=== PATIENT | female | born 1990 | race African-American/Black ===

== ENCOUNTER 2021-01-12 04:40 | Emergency (ER) | payer BC ==
[~2021-01-12] VITALS: Ht 167.6 cm; Wt 81.0 kg
[2021-01-12] MEDS ORDERED: LIDOCAINE HCL/EPINEPHRINE 1%-EPI 1:100,000 50 ML VIAL INFIL ONE (05:15)
[2021-01-12] MEDS ORDERED: SODIUM CHLORIDE 0.9% 1,000 ML IV ONE (05:30)
[2021-01-12] MEDS ORDERED: TETANUS, DIPHTHERIA, PERTUSSIS VAC/PF 0.5ML (>10YR OLD) IM ONE (05:30)
[2021-01-12 05:45] LABS: BASOPHILS % 0.9 % (0.0-2.0); EOSINOPHILS % 0.5 % (0.0-5.0); HEMATOCRIT. 39.9 % (36.0-48.0); HEMOGLOBIN. 13.1 g/dL (12.0-16.0); LYMPHOCYTES % 18.2 % (20.0-50.0); MEAN CORPUSCULAR HEMOGLOBIN 27.6 pg (28.0-32.0); MEAN CORPUSCULAR VOLUME 84.2 fL (81.0-99.0); MEAN PLATELET VOLUME 8.2 fl (7.4-10.4); MONOCYTES % 5.4 % (2.0-8.0); PLATELET 259 x1000/uL (130-400); RED BLOOD CELL COUNT 4.74 mill/uL (4.2-5.4); RED CELL DISTRIBUTION WIDTH 13.4 % (11.6-14.6)
[2021-01-12] MEDS ORDERED: LIDOCAINE HCL/EPINEPHRINE 1%-EPI 1:100,000 20 ML VIAL INFIL ONE (05:45)
[2021-01-12 05:50] LABS: CHLORIDE 112 mEq/L (98-107)
[2021-01-12 06:09] LABS: HCG SCREEN NEGATIVE
[2021-01-12 06:29] VITALS: BP 102/53
== END 2021-01-12 09:10 | disposition home or self-care (01) ==
LOC: ER 04:40
DX: R55 Syncope and collapse (principal); I48.91 Unspecified atrial fibrillation; S01.81XA Laceration without foreign body of other part of head, initial encounter; W01.0XXA Fall on same level from slipping, tripping and stumbling without subsequent striking against object, initial encounter; Y93.89 Activity, other specified; Y92.9 Unspecified place or not applicable
CPT/HCPCS: 12011; 36415; 71045; 80053; 84703; 85025; 93005; 96360; 96361; 99285; J3490; J7030